=== PATIENT | female | born 1940 | race Caucasian/White ===

== ENCOUNTER 2017-12-11 09:03 | Emergency (ER) | payer MEDICARE, OTHER ==
[~2017-12-11] VITALS: Ht 154.9 cm; Wt 99.8 kg
[~2017-12-11 09:03] MED LIST: CEPH500 PO; CYCL10 PO; DIPH50 PO; ESCI10 PO; FAMO20 PO; FAMO40; HYDCOR2.5B TOP; METF500 PO; MORP30ER PO; NADO80; OXYC5 PO; [UNRECOGNIZED DRUG - REMARK]
[2017-12-11] MEDS ORDERED: GLIM4 PO (09:39)
[2017-12-11] MEDS ORDERED: DILT120 PO (09:39)
[2017-12-11] MEDS ORDERED: METF500 PO (09:39)
[2017-12-11] MEDS ORDERED: Pravastatin Sod40 MG PO (09:40)
[2017-12-11] MEDS ORDERED: LOSARTAN POTAS100 MG PO (09:40)
[2017-12-11] MEDS ORDERED: MORP15ER PO (09:40)
[2017-12-11] MEDS ORDERED: GABA100 PO (09:40)
[2017-12-11 09:43] LABS: BASOPHILS ABSOLUTE AUTO 0.08 K/mm3 (0.00-0.23); BASOPHILS PERCENT AUTO 1 % (0-2); EOSINOPHILS ABSOLUTE AUTO 0.15 K/mm3 (0.00-0.68); EOSINOPHILS PERCENT AUTO 1 % (0-6); Hematocrit 38.6 % (33.0-51.0); Hemoglobin 11.8 g/dL (11.5-16.0); IMMATURE GRAN PERCENT AUTO 1 % (0-1); LYMPHOCYTES ABSOLUTE AUTO 1.33 K/mm3 (0.84-5.20); LYMPHOCYTES PERCENT AUTO 8 % (21-46); MONOCYTES ABSOLUTE AUTO 0.95 K/mm3 (0.16-1.47); MONOCYTES PERCENT AUTO 6 % (4-13); Mean Corpuscular HGB 26.7 pg (26.0-34.0); Mean Corpuscular HGB Conc 30.6 g/dL (31.5-36.5); Mean Corpuscular Volume 87 fL (80-100); Mean Platelet Volume 9.2 fL (9.1-12.4); NEUTROPHILS ABSOLUTE AUTO 14.16 K/mm3 (1.96-9.15); NEUTROPHILS PERCENT AUTO 84 % (41-73); Platelet Count 254 K/mm3 (150-400); RDW Coefficient Variation 14.4 % (11.7-14.2); RDW Standard Deviation 45.8 fL (35.1-46.3); Red Blood Cell Count 4.42 M/mm3 (3.80-5.20); White Blood Cell Count 16.77 K/mm3 (4.00-11.30)
[2017-12-11 10:03] LABS: Alanine Aminotransfer (ALT/SGP 30 U/L (12-78); Albumin, Blood 3.2 g/dL (3.4-5.0); Albumin/Globulin Ratio 0.8 (0.8-1.8); Alk Phos 99 U/L (50-136); Anion Gap 9 mmol/L (6-16); Aspartate Aminotrans (AST/SGOT 23 U/L (12-37); Bilirubin, Total 0.3 mg/dL (0.1-1.0); Blood Urea Nitrogen 18 mg/dL (8-24); Bun/Creatinine Ratio 28.7 (12.0-20.0); CO2, Blood 27 mmol/L (21-32); CPK Creatine Kinase 128 U/L (26-193); Calcium, Blood 9.1 mg/dL (8.5-10.1); Chloride, Blood 104 mmol/L (98-108); Creatine Kinase MB 1.8 ng/mL (0.0-3.6); Creatine Kinase MB Index 1.4 (0.0-4.0); Creatinine, Blood 0.63 mg/dL (0.40-1.00); Glomerular Filtration Rate >60 (60-); Glucose, Blood 151 mg/dL (70-99); Potassium, Blood 4.2 mmol/L (3.5-5.5); Sodium, Blood 140 mmol/L (136-145); Total Protein, Blood 7.2 g/dL (6.4-8.2)
== END 2017-12-11 11:38 | disposition home or self-care (01) ==
LOC: ER 09:03
PROVIDERS: Emergency Medicine
DX: M17.11 Unilateral primary osteoarthritis, right knee (principal); M25.551 Pain in right hip; E11.9 Type 2 diabetes mellitus without complications; I10 Essential (primary) hypertension; E66.01 Morbid (severe) obesity due to excess calories; Z68.41 Body mass index [BMI] 40.0-44.9, adult; Z88.6 Allergy status to analgesic agent; Z79.899 Other long term (current) drug therapy; W17.89XA Other fall from one level to another, initial encounter
CPT/HCPCS: 72170; 73562-RT; 80053; 82550; 82553; 85025; 96361; 96374; 96375; 96376; 99284; J1170; J2405; J7030

== ENCOUNTER → 2018-03-01 | Outpatient (CLI) | payer MEDICARE ==
[~2018-03-01] MED LIST changes: +DILT120 PO; +GABA100 PO; +GLIM4 PO; +LOSARTAN POTAS100 MG PO; +MORP15ER PO; +Pravastatin Sod40 MG PO
[2018-03-01 15:52] LABS: Source, Urine Clean Catch
[2018-03-01 17:46] LABS: Bilirubin, Urine Neg (Neg); Blood, Urine Neg (Neg); Glucose Qualitative, Urine Neg (Neg); Ketones, Urine Neg (Neg); Leukocyte Esterase, Urine 2+ (Neg); Nitrite, Urine Neg (Neg); Protein, Urine Neg (Neg); Specific Gravity, Urine 1.015 (1.003-1.022); Urobilinogen, Urine NORM (Normal)
[2018-03-01 17:53] LABS: Appearance, Urine Hazy (Clear); Bacteria Mod /hpf; Color, Urine No Color (P-Yellow); Red Blood Cells, Urine Not Seen /hpf (0-2); Squamous Epithelial Cells Mod /hpf (Few); White Blood Cells, Urine 0-2 /hpf (0-5)
== END ==
LOC: LAB SHORT 15:50 → LAB 15:50
PROVIDERS: Internal Medicine
DX: R82.90 Unspecified abnormal findings in urine (principal)
CPT/HCPCS: 81001; 87086

== ENCOUNTER → 2019-10-30 | Outpatient (CLI) | payer OTHER | END | disposition home or self-care (01) | LOC: LAB SHORT 16:07 → LAB EV 16:07 | DX: K13.0 Diseases of lips (principal) | CPT/HCPCS: 87070; 87075; 87077; 87147; 87186; 87205 ==

== ENCOUNTER 2021-07-30 18:57 | Emergency (ER) | payer OTHER ==
[~2021-07-30] VITALS: Ht 172.7 cm; Wt 90.7 kg
[2021-07-30 19:50] LABS: Calcium, Ionized (POC) 1.26 mmol/L (1.10-1.46); Chloride (POC) 97 mmol/L (98-108); Creatinine (POC) 0.4 mg/dL (0.6-1.0); Glucose (ISTAT POC) 392 mg/dL (70-99); Hemoglobin (POC) 12.9 g/dL (12.0-16.0); Potassium (POC) 3.9 mmol/L (3.5-5.5); Sodium (POC) 134 mmol/L (135-148); Total CO2 (POC) 23 mmol/L (21-32)
[2021-07-30] MEDS ORDERED: METF500 PO (21:39)
== END 2021-07-30 22:12 | disposition home or self-care (01) ==
LOC: ER 18:57
PROVIDERS: Emergency Medicine
DX: E11.65 Type 2 diabetes mellitus with hyperglycemia (principal); I10 Essential (primary) hypertension; Z79.84 Long term (current) use of oral hypoglycemic drugs; Z79.899 Other long term (current) drug therapy; Z88.6 Allergy status to analgesic agent
CPT/HCPCS: 70450; 71045; 80047; 82947; 85014; 93005; 93010; 99285-25; A9270

== ENCOUNTER → 2021-08-30 | Outpatient (CLI) | payer OTHER ==
[2021-08-30 15:19] LABS: Appearance, Urine Clear (Clear); Bilirubin, Urine Neg (Neg); Blood, Urine Neg (Neg); Color, Urine Yellow (P-Yellow); Glucose Qualitative, Urine 2+ (Neg); Ketones, Urine 2+ (Neg); Leukocyte Esterase, Urine 2+ (Neg); Nitrite, Urine Neg (Neg); Protein, Urine 1+ (Neg); Specific Gravity, Urine 1.015 (1.003-1.022); Urobilinogen, Urine NORM (Normal)
[2021-08-30 15:37] LABS: Calcium Oxalate Crystals Few /hpf
[2021-08-30 15:38] LABS: Bacteria Few /hpf; Red Blood Cells, Urine 0-2 /hpf (0-2); Squamous Epithelial Cells Few /hpf (Few)
== END | disposition home or self-care (01) ==
LOC: LAB SHORT 13:00 → LAB FUT 08-16 16:35
PROVIDERS: Nurse Practitioner Family
DX: N39.0 Urinary tract infection, site not specified (principal); R30.9 Painful micturition, unspecified
CPT/HCPCS: 81001

== ENCOUNTER 2021-11-01 22:36 | Inpatient (IN) | payer OTHER ==
[~2021-11-01] VITALS: Ht 157.5 cm; Wt 79.2 kg
[2021-11-01 23:54] LABS: BASOPHILS ABSOLUTE AUTO 0.11 K/mm3 (0.00-0.23); BASOPHILS PERCENT AUTO 0 % (0-2); EOSINOPHILS ABSOLUTE AUTO 0.01 K/mm3 (0.00-0.68); EOSINOPHILS PERCENT AUTO 0 % (0-6); Hematocrit 45.4 % (33.0-51.0); IMMATURE GRAN ABSOLUTE AUTO 0.12 K/mm3 (0.00-0.10); IMMATURE GRAN PERCENT AUTO 1 % (0-1); LYMPHOCYTES ABSOLUTE AUTO 1.43 K/mm3 (0.84-5.20); LYMPHOCYTES PERCENT AUTO 6 % (21-46); MONOCYTES ABSOLUTE AUTO 1.25 K/mm3 (0.16-1.47); MONOCYTES PERCENT AUTO 5 % (4-13); Mean Corpuscular HGB 24.9 pg (26.0-34.0); Mean Corpuscular HGB Conc 30.8 g/dL (31.5-36.5); Mean Corpuscular Volume 81 fL (80-100); Mean Platelet Volume 9.5 fL (9.1-12.4); NEUTROPHILS ABSOLUTE AUTO 21.56 K/mm3 (1.96-9.15); NEUTROPHILS PERCENT AUTO 88 % (41-73); Platelet Count 312 K/mm3 (150-400); RDW Coefficient Variation 16.7 % (11.7-14.2); RDW Standard Deviation 47.8 fL (35.1-46.3); Red Blood Cell Count 5.63 M/mm3 (3.80-5.20); White Blood Cell Count 24.48 K/mm3 (4.00-11.30)
[2021-11-02 00:11] LABS: Albumin, Blood 3.6 g/dL (3.4-5.0); Albumin/Globulin Ratio 0.8 (0.8-1.8); Bilirubin, Total 0.7 mg/dL (0.1-1.0); Bun/Creatinine Ratio 21.5 (12.0-20.0); Calcium, Blood 10.1 mg/dL (8.5-10.1); Creatinine, Blood 3.63 mg/dL (0.40-1.00); Globulin, Blood 4.5 g/dL (2.2-4.0); Potassium, Blood 3.7 mmol/L (3.5-5.5); Total Protein, Blood 8.1 g/dL (6.4-8.2)
[2021-11-02 00:18] LABS: Source, Urine Straight Cath
[2021-11-02 00:20] LABS: Bilirubin, Urine Neg (Neg); Blood, Urine 5+ (Neg); Glucose Qualitative, Urine 2+ (Neg); Ketones, Urine Neg (Neg); Leukocyte Esterase, Urine 2+ (Neg); Nitrite, Urine Neg (Neg); Protein, Urine 3+ (Neg); Specific Gravity, Urine 1.015 (1.003-1.022); Urobilinogen, Urine NORM (Normal)
[2021-11-02 00:28] LABS: Appearance, Urine Hazy (Clear); Color, Urine Yellow (P-Yellow)
[2021-11-02 00:30] LABS: Amorphous Light (0-Heavy); Bacteria Mod /hpf; Squamous Epithelial Cells Mod /hpf (Few)
[2021-11-02 03:59] LABS: Influenza A, PCR NEGATIVE (NEGATIVE); Influenza B, PCR NEGATIVE (NEGATIVE); Resp Syncytial Virus, PCR NEGATIVE (NEGATIVE); SARS-Cov-2 (COVID-19) PCR, MMC NEGATIVE (NEGATIVE)
[2021-11-02 05:34] LABS: BASOPHILS ABSOLUTE AUTO 0.09 K/mm3 (0.00-0.23); BASOPHILS PERCENT AUTO 0 % (0-2); EOSINOPHILS PERCENT AUTO 0 % (0-6); Hematocrit 44.5 % (33.0-51.0); Hemoglobin 13.2 g/dL (11.5-16.0); IMMATURE GRAN ABSOLUTE AUTO 0.18 K/mm3 (0.00-0.10); IMMATURE GRAN PERCENT AUTO 1 % (0-1); LYMPHOCYTES ABSOLUTE AUTO 1.89 K/mm3 (0.84-5.20); LYMPHOCYTES PERCENT AUTO 7 % (21-46); MONOCYTES ABSOLUTE AUTO 1.67 K/mm3 (0.16-1.47); MONOCYTES PERCENT AUTO 6 % (4-13); Mean Corpuscular HGB 25.5 pg (26.0-34.0); Mean Corpuscular HGB Conc 29.7 g/dL (31.5-36.5); Mean Platelet Volume 10.3 fL (9.1-12.4); NEUTROPHILS ABSOLUTE AUTO 24.41 K/mm3 (1.96-9.15); NEUTROPHILS PERCENT AUTO 87 % (41-73); Platelet Count 282 K/mm3 (150-400); RDW Coefficient Variation 16.7 % (11.7-14.2); RDW Standard Deviation 51.6 fL (35.1-46.3); Red Blood Cell Count 5.18 M/mm3 (3.80-5.20); White Blood Cell Count 28.24 K/mm3 (4.00-11.30)
[2021-11-02 06:01] LABS: Mean Corpuscular Volume 86 fL (80-100)
[2021-11-02 06:14] LABS: Bun/Creatinine Ratio 21.4 (12.0-20.0); Calcium, Blood 8.9 mg/dL (8.5-10.1); Creatinine, Blood 3.46 mg/dL (0.40-1.00); Potassium, Blood 4.7 mmol/L (3.5-5.5)
[2021-11-02 10:32] LABS: Adenovirus F 40/41 Not Detected (NOT DETECT); Astrovirus Not Detected (NOT DETECT); Campylobacter Sp Not Detected (NOT DETECT); Cryptosporidium Not Detected (NOT DETECT); Cyclospora Cayetanensis Not Detected (NOT DETECT); E. Coli O157 Not Detected (NOT DETECT); Entamoeba Histolytica Not Detected (NOT DETECT); Enteroaggregative E. coli-EAEC Not Detected (NOT DETECT); Enteropathogenic E. coli-EPEC Not Detected (NOT DETECT); Enterotoxigenic E. coli-ETEC Not Detected (NOT DETECT); Giardia Lamblia Not Detected (NOT DETECT); Norovirus GI/GII Not Detected (NOT DETECT); Plesiomonas Shigelloides Not Detected (NOT DETECT); Rotavirus A Not Detected (NOT DETECT); Salmonella Sp Not Detected (NOT DETECT); Sapovirus Not Detected (NOT DETECT); Shiga Toxin-prod E. coli-STEC Not Detected (NOT DETECT); Shigella/Enteroin E. coli-EIEC Not Detected (NOT DETECT); Vibrio Cholerae Not Detected (NOT DETECT); Vibrio Sp Not Detected (NOT DETECT); Yersinia Enterocolitica Not Detected (NOT DETECT)
[2021-11-02] MEDS ORDERED: PRAVASTATIN SOD40 MG PO (14:08)
[2021-11-02] MEDS ORDERED: CHLO25B PO (14:09)
[2021-11-02] MEDS ORDERED: GABA300 PO (14:09)
[2021-11-02] MEDS ORDERED: ESCI10 PO (14:10)
[2021-11-02] MEDS ORDERED: Acetaminophen325 M1 PO (14:14)
[2021-11-02] MEDS ORDERED: TRAM50 PO (14:14)
--- NOTE | 2021-11-02 17:05 | NUR ---
PT ARRIVED IN THE ROOM FROM ER APPROX 1345 AND IS HERE FOR ARF/SEPSIS/UTI. PT IS ALERT TO SELF AND PLACE ONLY, UNABLE TO STATE DATE AND TIME, POOR HISTORIAN. VITALS HRR SR 80'S, BP WERE SOFT 90-110 SYSTOLIC, SATS ABOVE 90% ON RA DESATS TO 88% WHEN SLEEPING APPLIE 1L OF O2 VIA NASAL CANNULA. AFEBRILE. PT WAS C/O ABD/BACK PAIN THAT WAS MEDICATED WITH IV DILAUDID IN THE ER AND REPORTED SOFT BP'S, EVER SINCE TRANSFER PT HAS BEEN RESTING ONLY C/O PAIN WHEN MOVED OR REPOSITIONED. NAHCO3 RUNNING AT 150MLS/HR, HORN DRAINING PATENT VIA GRAVITY, PT HAD SIPS OF WATER WITH NO ISSUES. ORIENTED TO ROOM AND UNIT AND USE OF CALL LIGHTS. PT HAS REDNESS ON COCCYX AND BUTTOCKS DUE TO EPISODES OF DIARRHEA PER REPORT, GI PANEL NEGATIVE. SPOKE WITH THE DAUGHTER ON THE PHONE GAVE AN UPDATE ALSO VERIFIED PT'S CODE STATUS PT IS NOT ABLE TO MAKE DECISION AT THIS TIME, DAUGHTER VERIFIED THAT PT WOULD LIKE TO BE DNR ON HER CODE STATUS PROVIDER CALLED AND MADE AWARE CODE STATUS CHANGED TO DNR PALLIATIVE CARE CONSULT ORDERED FOR AD/POLST INFO. PT NOW IN BED RESTING WITH CALL LIGHTS IN REACH. NO OTHER ISSUES REPORTED AT THIS TIME, WILL MONITOR
--- NOTE | 2021-11-03 05:31 | NUR ---
SHFIT SUMMARY PT RESTED WELL THROUGH THE NIGHT. ALERT AND ORIENTED X2, ABLE TO MAKE NEEDS KNOWN. COOPERATIVE WITH PLAN OF CARE. SATS >95% ON 1LNC. TELE READS NSR - RATE 80 AT THIS TIME. HORN IN PLACE. INCONTINENT OF BOWEL - ATTENDS IN PLACE, CHANGED 3 TIMES THROUGH SHIFT PATIENT IS HAVING FREQUENT DIARRHEA. NA BICARB C DEXTROSE INFUSING @150/HR. BLOOD SUGAR WNL. Q2 TURNS. CALL LIGHT WITHIN REACH, BED IN LOWEST POSITION. WILL CONTINUE TO MONITOR.
[2021-11-03 06:16] LABS: BASOPHILS ABSOLUTE AUTO 0.05 K/mm3 (0.00-0.23); BASOPHILS PERCENT AUTO 0 % (0-2); EOSINOPHILS ABSOLUTE AUTO 0.01 K/mm3 (0.00-0.68); EOSINOPHILS PERCENT AUTO 0 % (0-6); Hematocrit 37.4 % (33.0-51.0); Hemoglobin 12.1 g/dL (11.5-16.0); IMMATURE GRAN ABSOLUTE AUTO 0.14 K/mm3 (0.00-0.10); IMMATURE GRAN PERCENT AUTO 1 % (0-1); LYMPHOCYTES ABSOLUTE AUTO 1.31 K/mm3 (0.84-5.20); LYMPHOCYTES PERCENT AUTO 6 % (21-46); MONOCYTES ABSOLUTE AUTO 1.42 K/mm3 (0.16-1.47); MONOCYTES PERCENT AUTO 6 % (4-13); Mean Corpuscular HGB 25.7 pg (26.0-34.0); Mean Corpuscular HGB Conc 32.4 g/dL (31.5-36.5); Mean Platelet Volume 9.9 fL (9.1-12.4); NEUTROPHILS PERCENT AUTO 88 % (41-73); Platelet Count 269 K/mm3 (150-400); RDW Coefficient Variation 17.2 % (11.7-14.2); RDW Standard Deviation 48.7 fL (35.1-46.3); Red Blood Cell Count 4.71 M/mm3 (3.80-5.20); White Blood Cell Count 23.23 K/mm3 (4.00-11.30)
[2021-11-03 06:20] LABS: Mean Corpuscular Volume 79 fL (80-100)
[2021-11-03 06:55] LABS: Albumin, Blood 2.7 g/dL (3.4-5.0); Bilirubin, Total 0.4 mg/dL (0.1-1.0); Bun/Creatinine Ratio 20.2 (12.0-20.0); Calcium, Blood 8.3 mg/dL (8.5-10.1); Creatinine, Blood 3.96 mg/dL (0.40-1.00); Magnesium, Blood 1.7 mg/dL (1.6-2.4); Phosphorus, Blood 6.2 mg/dL (2.5-4.9)
[2021-11-03 07:22] LABS: Albumin/Globulin Ratio 0.9 (0.8-1.8)
[2021-11-03 09:05] LABS: Total Protein, Blood 5.7 g/dL (6.4-8.2)
--- NOTE | 2021-11-03 11:11 | NUR ---
PATIENT ALERT TO SELF AND ABLE TO TELL ME BIRTHDAY. THINKS SHE IS AT HOME. VERY SLOW TO RESPOND AND SOFT SPOKEN. ABLE TO MOVE ALL EXTREMITIES. VERY WEAK OVERALL. COMPLAINS OF LEFT HIP PAIN. Q2 TURNING IN PLACE. HOLDING RIGHT EAR AT TIMES. STATES SHE FELT A POP, AND HAS SMALL AMOUNTS OF PAIN. DR. JARRELL AWARE OF EAR PAIN. ON ROOM AIR THIS AM SATING HIGH 90'S. DENIES SOB. TELE SHOWING SINUS RHYTHM WITH HR 80-90'S. ATTENDS IN PLACE. JOSE AREA AND COCCYX RED, CREAM APPLIED AND Q2 TURNING. HORN CATH IN PLACE DRAINING TO GRAVITY. LR BOLUS INFUSING AND WILL CONTINUE AT 100ML/HR AFTER. ACHS BLOOD SUGARS. WILL CONTINUE TO MONITOR.
--- NOTE | 2021-11-03 11:55 | NUR ---
UPDATE: PATIENT HOLDING RIGHT SIDE OF FACE, END OF JAW AND DIRECTLY BELOW EAR LOBE IS SWOLLEN AND TENDER. DR. JARRELL CALLED AND AWARE. MEDICATED PER EMAR FOR PAIN. WAR COMPRESS APPLIED. WILL CONTINUE TO MONITOR.
--- NOTE | 2021-11-03 12:35 | NUR ---
UPDATE: SPOKE WITH DR. JARRELL REGARDING SWOLLEN/FIRM/TENDER RIGHT LOWER CHEEK. PAIN MEDS GIVEN PER EMAR AND WARM COMPRESS APPLIED. SPOKE WITH DAUGHTER CHAMP ON PHONE. SHE STATES SINCE PATIENT HAD UTI AND KIDNEY INFECTION IN JULY, HER MEMORY HAS RAPIDLY DECREASED. PATIENT WAS LIVING WITH DAUGHTER AND RECENTLY MOVED TO [facility] LAST THURSDAY. DAUGHTER STATES PATIENT DID NOT RECOGNIZE FAMILY AND THOUGHT THEY WERE WORKERS. DAUGHTER ALSO STATES PATIENT HAS A VERY POOR APPEATITE AND AT TIMES IT OWULD BE HARD TO GET PATIENT TO DRINK 20 OZ OF WATER AT HOME. UPDATE PROVIDED TO DAUGHTER. PATIENT RESTING AT THIS TIME. DRANK ENSURE AND SOME WATER FOR LUNCH. NOT INTERESTED IN FOOD. 24 HOUR URINE STARTED ON 11/03 AT 1145 AM.
[2021-11-03 14:44] LABS: Bun/Creatinine Ratio 19.2 (12.0-20.0); Calcium, Blood 7.8 mg/dL (8.5-10.1); Creatinine, Blood 4.06 mg/dL (0.40-1.00); Potassium, Blood 3.2 mmol/L (3.5-5.5)
--- NOTE | 2021-11-03 18:06 | NUR ---
SHIFT SUMMARY: NO ACUTE CHANGES. SEE PREVIOUS NOTES. REMAINS ALERT AND ORIENTED X1-2. ON ROOM AIR - 1L NASAL CANNULA SATING HIGH 90'S. NO CHANGES IN TELE. DR. JARRELL IN TO ASSESS RIGHT PAROTID GLAND. ULTRASOUND ORDERED. SECURITIES BROKER IN ROOM AT THIS TIME. PATIENT SLEEPING ON AND OFF. POTASSIUM INFUSED. LR INFUSING AT 100 ML/HR. Q2 TURNS. ACHS BLOOD SUGARS. POOR APPEATITE. MORE INTERESTED IN DRINKING THAN EATING. SPEECH THERAPY ORDERED. NOT USING CALL LIGHT. WILL CONTINUE TO MONTIOR AND REPORT OFF.
[2021-11-04 04:53] LABS: Hematocrit 32.4 % (33.0-51.0); Hemoglobin 10.6 g/dL (11.5-16.0); Mean Corpuscular HGB 25.5 pg (26.0-34.0); Mean Corpuscular HGB Conc 32.7 g/dL (31.5-36.5); Mean Corpuscular Volume 78 fL (80-100); Mean Platelet Volume 9.7 fL (9.1-12.4); Platelet Count 207 K/mm3 (150-400); RDW Coefficient Variation 17.4 % (11.7-14.2); RDW Standard Deviation 48.6 fL (35.1-46.3); Red Blood Cell Count 4.16 M/mm3 (3.80-5.20); White Blood Cell Count 15.31 K/mm3 (4.00-11.30)
[2021-11-04 05:12] LABS: Albumin, Blood 2.4 g/dL (3.4-5.0); Anion Gap 13 mmol/L (6-16); Blood Urea Nitrogen 78 mg/dL (8-24); Bun/Creatinine Ratio 19.6 (12.0-20.0); CO2, Blood 36 mmol/L (21-32); CPK Creatine Kinase 80 U/L (26-193); Calcium, Blood 7.9 mg/dL (8.5-10.1); Chloride, Blood 86 mmol/L (98-108); Creatinine, Blood 3.97 mg/dL (0.40-1.00); Glomerular Filtration Rate 11 (60-); Glucose, Blood 168 mg/dL (70-99); Magnesium, Blood 1.6 mg/dL (1.6-2.4); Phosphorus, Blood 4.4 mg/dL (2.5-4.9); Potassium, Blood 3.1 mmol/L (3.5-5.5); Sodium, Blood 135 mmol/L (136-145); Uric Acid, Blood 8.4 mg/dL (2.6-6.0)
--- NOTE | 2021-11-04 06:02 | NUR ---
SHIFT SUMMARY PT ALERT TO SELF. PT SLEEPING THROUGH MOST OF SHIFT. PT CRYING IN PAIN, MEDICATED PER EMAR. PT RESTING AFTER MEDICATION. HR STABLE. BP STABLE. UNABLE TO ASSESS FOR CP D/T CONFUSION. BED ALARM IN PLACE. 24 HR URINE IN PROGRESS, HORN BAG IN ICE. HORN PATENT AND DRAINING TO GRAVITY. PT TURNED Q 2 HRS AND NEEDED FOR COMFORT. BARRIER CREAM APPLIED TO COCCYX. WILL CONT TO MONITOR UNTIL REPORT GIVEN TO DAYSHIVINNY RN.
--- NOTE | 2021-11-04 09:00 | NUR ---
PT WAS VERY LETHARGIC WEAK AND DROWSY BARELY EVEN RESPOND OR FOLLOW COMMANDS, VITALS HRR SR 80-90'S, BP SYSTOLIC 110-130, SATS ABOVE 95% ON 2L OF O2, AFEBRILE. DR JARRELL SAW PT TODAY ORDERED ONE TIME DOSE OF NARCAN 0.4MG, AFTER 15 MINS PT CAME ALERT COULDNT GET COMFORTABLE IN BED C/O BACK PAIN, ABLE TO STATE NAME SPEECH IS GARBLED, TAKES MULTIPLE REDIRECTION TO FOLLOW COMMANDS, PT WAS REPOSITIONED IN BED, IV NARCOTICS DC'D AT THIS TIME TO GIVE TYLENOL FOR NOW FOR PAIN. SPEECH THERAPIST WORK WITH THE PT ORDER TO KEEP PT NPO FOR SAFETY. NO PO MEDS. PT STARTED ON LIDOCAINE PATCH TYELONOL SWITCH TO SUPPOSITORY, HEAT PACK APPLIED ON BACK WELL. PT HAD A LOOSE BM THIS MORNING BED BATH PROVIDED PT ABLE TO TOLERATE. 24 HRS URINE COMPLETED. BOLUS OF [address] JARRELL. PT NOW RESTING COMFORTABLY IN BED, CALL LIGHTS IN REACH WILL MONITOR PT
[2021-11-04 14:03] LABS: Protein, Urine Quantitative 85.9 mg/dL (0.0-11.9)
--- NOTE | 2021-11-04 18:10 | NUR ---
PT SUMMARY: SEE PREVIOUS NOTES. PT MORE ALERT AND TALKING FOR THE REST OF THE SHIFT STILL CONFUSED PULLING ON LINES AND TUBINGS, OFTEN PULLS ON O2 CANNULA THEN DESATS TO 80'S, RECOVERS QUICK. VITALS REMAINED STABLE, AFEBRILE. HORN DRAINING PATENT VIA GRAVITY. PT CONTINUES TO MOAN AND GROAN MEDICATED WITH TYLENOL SUPPOSITORY, HEAT PACK AND LIDOCAINE PATCH THAT SEEMED TO WORK. ORAL CARE PROVIDED AND LEMON SWABS FOR PAROTIDITIS. REPOSITIONED OFTEN FOR COMFORT. PT REMAINS NPO TO RE-EVAL BY SPEECH THERAPIST IN AM. LR RUNNING AT 100MLS/HR. PT RESTING IN BED CALL LIGHTS IN REACH WILL REPORT TO ONCOMING SHIFT
[2021-11-05 05:15] LABS: Hematocrit 31.4 % (33.0-51.0); Hemoglobin 10.1 g/dL (11.5-16.0); Mean Corpuscular HGB 25.3 pg (26.0-34.0); Mean Corpuscular HGB Conc 32.2 g/dL (31.5-36.5); Mean Corpuscular Volume 79 fL (80-100); Mean Platelet Volume 9.9 fL (9.1-12.4); Platelet Count 196 K/mm3 (150-400); RDW Coefficient Variation 17.2 % (11.7-14.2); RDW Standard Deviation 48.9 fL (35.1-46.3); White Blood Cell Count 10.95 K/mm3 (4.00-11.30)
[2021-11-05 05:51] LABS: Albumin, Blood 2.2 g/dL (3.4-5.0); Anion Gap 9 mmol/L (6-16); Blood Urea Nitrogen 77 mg/dL (8-24); Bun/Creatinine Ratio 20.1 (12.0-20.0); CO2, Blood 37 mmol/L (21-32); Calcium, Blood 7.8 mg/dL (8.5-10.1); Chloride, Blood 90 mmol/L (98-108); Creatinine, Blood 3.84 mg/dL (0.40-1.00); Glomerular Filtration Rate 11 (60-); Glucose, Blood 121 mg/dL (70-99); Magnesium, Blood 1.5 mg/dL (1.6-2.4); Phosphorus, Blood 3.4 mg/dL (2.5-4.9); Potassium, Blood 2.7 mmol/L (3.5-5.5); Sodium, Blood 136 mmol/L (136-145)
--- NOTE | 2021-11-05 06:37 | NUR ---
SHIFT SUMMARY PT LETHARGIC DURING SHIFT. REPONDS TO VERBAL STIMULI. PT ALERT TO SELF. HORN DRAINING TO GRAVITY. HR STABLE. BP STABLE. OXYGEN SATURATION MAINTAINED ABOVE 92% ON 2 L OF OXYGEN VIA NC. PT TURNED Q [address] PHYSICIAN NOTIFIED OF AM LABS. PHYSICIAN PUT IN ORDERS FOR ELECTROLYTE REPLACEMENT, SEE EMAR. WILL CONT TO MONITOR UNTIL REPORT GIVEN TO MARION SOTO.
--- NOTE | 2021-11-05 06:50 | NUR ---
UPDATE SPOKE WITH PHYSICIAN REGARDING ORDERS FOR LR. PHYSICIAN DOES NOT WANT BOLUS OR LR TO RUN AT 200 ML/HR. LR TO RUN AT 75 ML/HR. PHARMACY NOTIFIED.
--- NOTE | 2021-11-05 16:53 | NUR ---
SHIFT SUMMARY PT ALERT, ORIENTED TO PERSON/SELF, SURROUNDING AND FOLLOWING DIRECTIONS. APPEARS TO BE SLEEPING FOR MAJORTY OF SHIFT, WAKES EASILY TO VERBAL STIMULI. PT APPEARS PAINFUL, MEDICATED PER EMAR. NO OTHER S/Sx OF DISTRESS NOTED. REPOSITIONED FOR COMFORT AND PRESSURE ULCER PREVENTION. PT STARTING BACK ON IV ANTIBIOTICS, UNABLE TO SWALLOW PILLS AT THIS TIME; DR JARRELL NOTIFIED. VSS. NO OTHER ACUTE CHANGES NOTED. WILL CONTINUE TO MONITOR UNTIL REPORT GIVEN TO ONCOMING RN.
[2021-11-06 05:57] LABS: Hematocrit 31.9 % (33.0-51.0); Hemoglobin 10.2 g/dL (11.5-16.0)
--- NOTE | 2021-11-06 06:06 | NUR ---
SHIFT SUMMARY PT ALERT TO SELF. DIRECTABLE. PT CRYING DURING SHIFT AT TIMES. AT TIMES PT STATES SHE "DOESNT KNOW WHY SHE IS CRYING." PT PROVIDED WITH COMFORT. PT CALMS DOWN WHEN HAVING NURSE AT BEDSIDE. PT REPORTED TO HAVE PAIN BEFORE NEXT SCHEDULED DOSE OF TYLENOL IS ABLE TO BE GIVEN. HEATING PACK APPLIED AND PT REPOSITIONED. PT RESTING AFTER THESE MEASURES. PT ALSO MEDICATED WITH TYLENOL TX FOR PAIN RELIEF. SEE EMAR. PT REPOSITIONED Q 2 HRS. BARRIER CREAM APPLIED TO COCCYX. PT FREQUENTLY PULLING AT OXYGEN TUBING. HARSHAENLTY ON CAMERA. HORN PATENT AND DRAINING. HR STABLE. BP STABLE. NO CP OR PRESSURE REPORTED. OXYGEN SATURATION MAINTAINED ABOVE 92% ON 2 L OF OXYGEN VIA NC.DR. ORELLANA NOTIFIED THAT PT DOES NOT HAVE AM LABS. LABS ORDERED PER PHYSICIAN STAT AND WILL INFORM PHYSICIAN AFTER LABS HAVE RESULTED. WILL CONT TO MONITOR UNTIL REPORT GIVEN TO MELLO SOTO.
[2021-11-06 06:19] LABS: Albumin, Blood 2.1 g/dL (3.4-5.0); Anion Gap 7 mmol/L (6-16); Blood Urea Nitrogen 67 mg/dL (8-24); Bun/Creatinine Ratio 19.9 (12.0-20.0); CO2, Blood 38 mmol/L (21-32); Chloride, Blood 93 mmol/L (98-108); Creatinine, Blood 3.37 mg/dL (0.40-1.00); Glomerular Filtration Rate 13 (60-); Glucose, Blood 123 mg/dL (70-99); Magnesium, Blood 1.8 mg/dL (1.6-2.4); Phosphorus, Blood 2.8 mg/dL (2.5-4.9); Sodium, Blood 138 mmol/L (136-145)
--- NOTE | 2021-11-06 06:41 | NUR ---
UPDATE UPDATED ANGELA PT'S AM LABS. ORDERS FOR 40 MEQ OF K+ AND DECREASING RATE OF LR TO 50 ML/HR.
--- NOTE | 2021-11-06 17:55 | NUR ---
SHIFT SUMMARY PT A&O TO SELF AND IS FOLLOWING DIRECTSION, MORE ALERT THAN YESTERDAY ABLE TO ANSWER QUESTIONS. PT PULLING AT LINE AND CLOTHING T/O SHIFT, PULLED POWERGLIDE OUT THIS AFTERNOON. PT REPORTS PAIN, MEDICATED PER EMAR. PT DENIES SOB, SPO2 >90% ON RA T/O SHIFT. PT DENIES CHEST PAIN, NAUSEA AND DIZZINESS T/O SHIFT. PT REPOSITIONED Q2. PT RECEIVED POTASSIUM SUPPLEMENTS AND IV ANTIBIOTICS. VSS. NO OTHER ACUTE CHANGES NOTED. WILL CONTINUE TO MONITOR UNTIL REPORT GIVEN TO ONCOMING RN.
[2021-11-07 04:22] LABS: Hematocrit 35.4 % (33.0-51.0); Hemoglobin 11.5 g/dL (11.5-16.0)
[2021-11-07 04:47] LABS: Albumin, Blood 2.2 g/dL (3.4-5.0); Anion Gap 8 mmol/L (6-16); Blood Urea Nitrogen 54 mg/dL (8-24); Bun/Creatinine Ratio 21.2 (12.0-20.0); CO2, Blood 35 mmol/L (21-32); Chloride, Blood 97 mmol/L (98-108); Creatinine, Blood 2.55 mg/dL (0.40-1.00); Glomerular Filtration Rate 18 (60-); Glucose, Blood 157 mg/dL (70-99); Magnesium, Blood 1.5 mg/dL (1.6-2.4); Phosphorus, Blood 2.1 mg/dL (2.5-4.9); Potassium, Blood 2.7 mmol/L (3.5-5.5); Sodium, Blood 140 mmol/L (136-145)
--- NOTE | 2021-11-07 05:57 | NUR ---
BILINGUAL MANAGER SUMMARY PT STILL ALERT TO SELF. PT PULLING AT LINES DESPITE REDIRECTING SO ORDER FOR MITTEN RESTRAINTS OBTAINED. PT SLEPT COMFORTABLY FOR MOST OF THE SHIFT. VITAL SIGNS STABLE AND PT AFEBRILE. ONE EPISODE OF LOOSE STOOL THIS SHIFT. WILL REPORT TO ONCOMING RN.
[2021-11-07 15:11] LABS: A/G RATIO 1.1 (0.7-1.7); ALBUMIN 2.5 g/dL (2.9-4.4); ALPHA-1-GLOBULIN 0.3 g/dL (0.0-0.4); ALPHA-2-GLOBULIN 0.8 g/dL (0.4-1.0); BETA GLOBULIN 0.6 g/dL (0.7-1.3); GAMMA GLOBULIN 0.8 g/dL (0.4-1.8); GLOBULIN, TOTAL 2.5 g/dL (2.2-3.9); IMMUNOGLOBULIN A, QN, SERUM 205 mg/dL (64-422); IMMUNOGLOBULIN G, QN, SERUM 706 mg/dL (586-1602); IMMUNOGLOBULIN M, QN, SERUM 70 mg/dL (26-217); M-SPIKE Not Observed g/dL (Not Observed)
--- NOTE | 2021-11-07 19:31 | NUR ---
SHIFT SUMMARY PT A/O X2, CONFUSED AT TIMES. PT IN MITTEN RESTRAINTS AT BEGINING OF SHIFT, RESTRAINTS OFF OF PT AROUND NOON AND AT THE BEDSIDE. PT MORE ALERT TOWARDS END OF SHIFT. VSS THROUGHOUT SHIFT WITH 02 SATS >92% ON RA. PT HAD BM TODAY, DARK BROWN AND LOOSE. PT REPORTED GENERALIZED PAIN THROUGHOUT SHIFT, TREATED PER EMAR, REPOSITIONED, AND USED DISTRACTION TO CONSOLE PT. CAMERA ON IN ROOM. HORN IN PLACE AND DRAINING TO GRAVITY, YELLOW URINE.
[2021-11-08 03:24] LABS: Hematocrit 34.6 % (33.0-51.0)
[2021-11-08 03:39] LABS: Albumin, Blood 2.2 g/dL (3.4-5.0); Anion Gap 7 mmol/L (6-16); Blood Urea Nitrogen 37 mg/dL (8-24); Bun/Creatinine Ratio 23.1 (12.0-20.0); CO2, Blood 31 mmol/L (21-32); Calcium, Blood 7.6 mg/dL (8.5-10.1); Chloride, Blood 99 mmol/L (98-108); Glomerular Filtration Rate 31 (60-); Glucose, Blood 147 mg/dL (70-99); Magnesium, Blood 1.2 mg/dL (1.6-2.4); Phosphorus, Blood 2.4 mg/dL (2.5-4.9); Potassium, Blood 2.8 mmol/L (3.5-5.5); Sodium, Blood 137 mmol/L (136-145)
--- NOTE | 2021-11-08 05:58 | NUR ---
ARMED GUARD SUMMARY PT IS AXO X3 THIS SHIFT AND IS MUCH IMPROVED COMPARED TO PREVIOS TWO NIGHT SHE WAS NOT PULLING AT HER LINES AND IS COMMUNICATING APPROPRIATLEY. VSS AND TELE SHOWING SR IN THE 60'S THIS SHIFT. PT HAD 2 LOOSE BM'S THIS SHIFT AND THE SKIN ON HER BUTTOCKS IS VERY EXCORIATED BECAUSE OF CONTINUED INCONTINENCE, SKIN CARE AND CREAM APPLIED PRN. PT HAVING BETTER PO FLUID INTAKE THIS SHIFT. PT STILL HAVING DIFFICULT PAIN CONTROL HOWEVER THERE ARE TIMES WHEN SHE IS IN NO DISTRESS BUT WHEN STAFF THEN ENTERS THE BEDSIDE SHE BEGINS TO CRY OUT IN PAIN. WILL REPORT TO ONCOMING RN.
[2021-11-08 08:11] LABS: ANTIGLOMERULAR BM AB 3 units (0-20)
[2021-11-08 12:11] LABS: M-SPIKE, % Not Observed % (Not Observed); PROTEIN,TOTAL,URINE 42.5 mg/dL (Not Estab.)
[2021-11-08 12:49] LABS: Albumin, Blood 2.2 g/dL (3.4-5.0); Anion Gap 8 mmol/L (6-16); Blood Urea Nitrogen 34 mg/dL (8-24); Bun/Creatinine Ratio 24.6 (12.0-20.0); CO2, Blood 29 mmol/L (21-32); Calcium, Blood 7.7 mg/dL (8.5-10.1); Chloride, Blood 101 mmol/L (98-108); Creatinine, Blood 1.38 mg/dL (0.40-1.00); Glomerular Filtration Rate 37 (60-); Glucose, Blood 229 mg/dL (70-99); Phosphorus, Blood 3.2 mg/dL (2.5-4.9); Potassium, Blood 3.4 mmol/L (3.5-5.5); Sodium, Blood 138 mmol/L (136-145)
--- NOTE | 2021-11-08 18:00 | NUR ---
SHIFT SUMMARY PT A/O X3, CONFUSED. VSS THROUGHOUT SHIFT WITH O2 SATS > 94% ON RA. PT OUT OF MITTEN RESTRAINTS FOR MAJORITY OF SHIFT, MITTENS APPLIED AT [address] PRESSLEY ORDERS DUE TO PT PULLING OUT AN IV AND PULLING OFF TELE LEADS. PT MANAGED TO REMOVE MITTENS MULTIPLE TIMES DURING SHIFT, MONITOR TECHS NOTIFIED STAFF. PT REPORTED GENERALIZED PAIN DURING SHIFT, PT REPOSITIONED AND TREATED PER EMAR. NO REPORT OF CHEST PAIN/PRESSURE THROUGHOUT SHIFT. NO REPORT OF SOB/DYSPNEA THROUGHOUT SHIFT. HORN IN PLACE AND DRAINING TO GRAVITY, YELLOW URINE.
--- NOTE | 2021-11-08 18:08 | NUR ---
UPDATE AT 1450, PATIENT TECH CONTACTED RN DUE TO PT PULLING LEFT FOREARM IV. IV CATHETER WAS INTACT. IV SITE WRAPPED WITH 2X2 AND COBAN. PT REORIENTED AND INFORMED OF THE IMPORTANCE OF THE IV'S. PT EXPRESSED UNDERSTANDING. 1455 WIRE TURNING MACHINE OPERATOR CONTACTED THIS RN ABOUT PT PULLING OFF TELE LEADS. LEADS REPLACED AND DR PRESSLEY NOTIFIED. PRDERS FOR SOFT MITTEN RESTRAINTS ORDERED TO PROTECT LINES AND LEADS.
[2021-11-09 03:25] LABS: Hematocrit 34.9 % (33.0-51.0); Hemoglobin 11.1 g/dL (11.5-16.0)
[2021-11-09 03:43] LABS: Albumin, Blood 2.3 g/dL (3.4-5.0); Anion Gap 8 mmol/L (6-16); Blood Urea Nitrogen 27 mg/dL (8-24); Bun/Creatinine Ratio 25.5 (12.0-20.0); CO2, Blood 27 mmol/L (21-32); Calcium, Blood 7.9 mg/dL (8.5-10.1); Chloride, Blood 102 mmol/L (98-108); Creatinine, Blood 1.06 mg/dL (0.40-1.00); Glomerular Filtration Rate 50 (60-); Glucose, Blood 166 mg/dL (70-99); Magnesium, Blood 1.2 mg/dL (1.6-2.4); Phosphorus, Blood 2.4 mg/dL (2.5-4.9); Potassium, Blood 3.2 mmol/L (3.5-5.5); Sodium, Blood 137 mmol/L (136-145)
--- NOTE | 2021-11-09 05:35 | NUR ---
AUTOMATIC PAINT SPRAYER OPERATOR SUMMARY PT MORE CONFUSED THIS SHIFT COMPARED TO PREVIOUS AUTOMATIC PAINT SPRAYER OPERATOR NEDDING CONSTANT REDIRECTION ABOUT PULLING AT HER LINES, RESTRAINTS DC'D AT START OF THE SHIFT. NO BOWEL MOVEMENTS THIS SHIFT. PT CONTINUES TO HAVE GOOD URINE OUTPUT. ULTRAM GIVEN AND PAIN APPEARS BETTER MANAGED THIS SHIFT. WILL REPORT TO ONCOMING RN.
--- NOTE | 2021-11-09 08:17 | NUR ---
Pt sitting up in bed, c/o pain in her right hip. She is alert, oriented to person, place, and not the date or time. Asked if she missed dinner last night, stating that she can't remember much of yesterday and thinks that she missed a "day and a half". States that at baseline she is wheelchair bound, but cannot explain to me where she lives, but she knows that she lives somewhere where she receives assistance to transfer to and from her wheelchair, but that she mostly manages on her own, even if she does fall from time to time. Assisted to dangle on side of bed and states that her hip feels much better in that position. She is eating breakfast.
--- NOTE | 2021-11-09 11:20 | NUR ---
bladder training started at 1040.
--- NOTE | 2021-11-09 11:43 | NUR ---
Pt sitting up in chair again after working with physical therapist. She appears comfortable, watching TV and having conversations. She had some confusion about where her wheelchair was this morning, and kept asking about it. She kept saying that she wanted to get up and go around. Reassured her that the wheelchair was probably at home, but she kept asking about it.
--- NOTE | 2021-11-09 12:25 | NUR ---
pt stated she felt like her bladder was full. UNclamped rodriguez.
--- NOTE | 2021-11-09 12:45 | NUR ---
Pt was a max assist, 2 persons required to assist her to stand and the chair was swaped out for commode chair behind her. She is sitting on the commode but keeps forgetting that she is sitting on it.
--- NOTE | 2021-11-09 15:22 | NUR ---
The pt has been talkative, alert, but confused today. She perseverates on various topics throughout the day. She has difficulty following directions as she forgets them and is easily distracted. Does not have insight into her limitations, ongoing care, and at times is confused to her location, and also to her home situation. Cannot give consistent information about her living situation, usual activities, and normal limitations. She is pleasant, and cooperative but requires lots of redirection. She has no been lethargic at all today. C/O constipation; however, in report I was told that she had been having loose stools within the past two days. Bladder training is ongoing. Max assist to the bedside commode from the chair.
--- NOTE | 2021-11-09 16:22 | NUR ---
2 PERSON maximum assist from bedside commode to the bed. Positioned on her left side. IV infusing potassium chloride per orders. Potassium phosphate IV finally completed.
--- NOTE | 2021-11-09 16:49 | NUR ---
Spoke with Brandy, the patient's daughter this afternoon. STates that the pt was living with her for 3 months when she rapidly declined after having a kidney infection, developed acute memory loss, and was placed in [facility], but only after 3-4 days she was admitted to the hospital this time. Spoke with Cindy, director of the [facility], phone [phone] and she said that the pt needs to be assessed before she may return. Cindy is out of town until Thursday11/12/21, so that would be the earliest date it could be done. There are various stipulations, but the most significant per Cindy are 1) Pt must be 1 person transfer only and 2) pt cannot be on any insulin.
--- NOTE | 2021-11-09 18:30 | NUR ---
Pt c/o severe pain in her left forearm, waking up to the pain of the potassium chloride infusion. It was stopped, with 10 meq left to infuse due to the pt's intolerance of it. ice pack applied for relief for 30 minutes, pt stated minimal relief. Warm heating pad applied, and pt fell asleep. Infusion of NS then attempted and pt again c/o severe pain at the site, and up her arm. Site verified to still be WNL. 3 attempts to restart IV, but the veins are so delicate that they rupture at the slightest prick. BRITTANY Moser Mc. stated that she had the same problem, also when attempting to start IV access with the [employer] ultrasound. Retried infusion in the left forearm, and this time the pt tolerated it well. She is sleeping at this time. Remote camera monitoring still in progress.
--- NOTE | 2021-11-09 18:35 | NUR ---
Nieto catheter unclamped, drained 200 cc, and reclamped when draining stopped.
[2021-11-10 06:27] LABS: Albumin, Blood 2.3 g/dL (3.4-5.0); Anion Gap 11 mmol/L (6-16); Blood Urea Nitrogen 17 mg/dL (8-24); Bun/Creatinine Ratio 22.3 (12.0-20.0); CO2, Blood 23 mmol/L (21-32); Calcium, Blood 8.4 mg/dL (8.5-10.1); Chloride, Blood 105 mmol/L (98-108); Creatinine, Blood 0.76 mg/dL (0.40-1.00); Glomerular Filtration Rate >60 (60-); Glucose, Blood 173 mg/dL (70-99); Magnesium, Blood 1.8 mg/dL (1.6-2.4); Phosphorus, Blood 3.3 mg/dL (2.5-4.9); Potassium, Blood 3.2 mmol/L (3.5-5.5); Sodium, Blood 139 mmol/L (136-145)
--- NOTE | 2021-11-10 17:55 | NUR ---
SHIFT SUMMARY PT LETHARGIC MOST OF MORNING AND CLOSING HER EYES WHILE TALKING. THIS AFTERNOON SHE IS MORE AWAKE AND ALERT. ORIENTED X3. VS HAVE BEEN STABLE. O2 SATS REMAIN ABOVE 90% ON RA. PT COMPLAINED OF BACK AND HIP PAIN AND MEDICTED PER EMAR. PT HAS BEEN REPOSITIONING HERSELF IN BED FREQUENTLY. PT HAD TWO INCONTINENT BM THIS SHIFT AND ATTENDS IN PLACE. WOUND TO COCCYX CLEANED AND NEW DRESSING PLACED. HORN CATHETER DC'ED TODAY. BED ALARM ON AND REMOTE CAMERA MONITORING FOR SAFETY
[2021-11-11 02:24] LABS: Source, Urine Foley catheter
[2021-11-11 02:26] LABS: Bilirubin, Urine Neg (Neg); Blood, Urine 1+ (Neg); Glucose Qualitative, Urine 3+ (Neg); Ketones, Urine Neg (Neg); Leukocyte Esterase, Urine Neg (Neg); Nitrite, Urine Neg (Neg); Protein, Urine Neg (Neg); Specific Gravity, Urine 1.005 (1.003-1.022); Urobilinogen, Urine NORM (Normal)
[2021-11-11 02:40] LABS: Appearance, Urine Clear (Clear); Color, Urine Yellow (P-Yellow)
[2021-11-11 02:41] LABS: Bacteria Not Seen /hpf; Squamous Epithelial Cells Not Seen /hpf (Few); White Blood Cells, Urine 0-2 /hpf (0-5)
[2021-11-11 03:46] LABS: Hematocrit 37.3 % (33.0-51.0); Hemoglobin 11.8 g/dL (11.5-16.0)
[2021-11-11 04:02] LABS: Albumin, Blood 2.5 g/dL (3.4-5.0); Anion Gap 10 mmol/L (6-16); Blood Urea Nitrogen 14 mg/dL (8-24); Bun/Creatinine Ratio 18.8 (12.0-20.0); CO2, Blood 27 mmol/L (21-32); Calcium, Blood 8.6 mg/dL (8.5-10.1); Chloride, Blood 104 mmol/L (98-108); Creatinine, Blood 0.75 mg/dL (0.40-1.00); Glomerular Filtration Rate >60 (60-); Glucose, Blood 167 mg/dL (70-99); Magnesium, Blood 1.6 mg/dL (1.6-2.4); Phosphorus, Blood 2.8 mg/dL (2.5-4.9); Potassium, Blood 2.8 mmol/L (3.5-5.5); Sodium, Blood 141 mmol/L (136-145)
--- NOTE | 2021-11-11 05:50 | NUR ---
PT IS ALERT TO SELF AND IS NOT REDIRECTABLE. PT HAD HORN CATHETER DC'D LATE ON THE PRIOR DAYSHIFT HOWEVER AFTER MULTIPLE ATTEMPS TO VOID THE PT WAS UNABLE TO PASS URINE DESPITE HAVE MULTIPLE BM'S. BLADDER SCAN SHOWED >600ML SO ORDER FOR STRAIGHT CATH WHICH GOT OUT >500ML OF URINE OUT. SEVERAL HOURS LATER THE PT AGAIN ATTEMPTED MULTIPLE TIMES TO VOID BUT WITH NO SUCCESS. AFTER THE BLADDER SCAN SHOWED >800ML OF URINE AN ORDER TO REPLACE THE HORN CATHETER WAS OBTAINED WHICH QUICKLY RESULTED IN 1300ML OF URINE. ATTEMPTS WERE MADE TO GET PT TO STAND AT THE EDGE OF THE BED HOWEVER DUE TO WEAKNESS THE PT WAS NOT ABLE TO BEAR ANY WEIGHT WITH HER LEGS. PT CONTINUES TO HAVE INCONTINENT LOOSE STOOLS SO ORDER FOR IMMODIUM X4 WAS OBTAINED DUE TO VERY EXCORIATED SKIN ON BUTTOCKS AND JOSE-AREA. PT VERY AGITATED AND RESTLESS THIS SHIFT AND DID NOT SLEEP AT ALL TONIGHT. VSS ALTHOUGH BP BECOMING MORE HYPERTENSIVE. O2 SATS >92% ON RM AIR. WILL REPORT TO ONCOMING RN.
[2021-11-11 12:09] LABS: ANA DIRECT Negative (Negative); ANTIMYELOPEROXIDASE (MPO) ABS <9.0 U/mL (0.0-9.0); ANTIPROTEINASE 3 (PR-3) ABS <3.5 U/mL (0.0-3.5); ATYPICAL PANCA <1:20 titer (Neg:<1:20); CYTOPLASMIC (C-ANCA) <1:20 titer (Neg:<1:20); PERINUCLEAR (P-ANCA) <1:20 titer (Neg:<1:20)
--- NOTE | 2021-11-11 18:27 | NUR ---
SHIFT SUMMARY: PT ALERT, ORIENTED TO SELF AND SURROUNDINGS, CONFUSED T/OUT SHIFT. PT MAINTAINING O2 SATS >92% ON RA, DENIES CHEST PAIN/PRESSURE. PT UP TO BEDSIDE CHAIR 2X, REQUIRING 2 PERSON ASSIST, WEAKNESS CONTINUES. PT RE-EVALUATED BY SPEECH THERAPY TODAY, DIET UPGRADED TO MEC SOFT AND PT ABLE TO SWALLOW PILLS WHOLE W/WATER. PT PLACED ON LOW SLIDING SCALE AND HOME DOSE OF METFORMIN HAS BEEN ORDERED, FIRST DOSE WITH DINNER. PT REPOSITIONED OFTEN, ATTENS CHANGED NEEDED. INDWELLING HORN CONTINUES PATENT. AT THIS TIME, PT RESTING QUIETLY IN BEDSIDE CHAIR, WILL CONTINUE TO MONITOR AND TREAT ACCORDINGLY UNTIL CHANGE OF SHIFT.
[2021-11-12 04:11] LABS: BASOPHILS ABSOLUTE AUTO 0.06 K/mm3 (0.00-0.23); BASOPHILS PERCENT AUTO 1 % (0-2); EOSINOPHILS ABSOLUTE AUTO 0.59 K/mm3 (0.00-0.68); EOSINOPHILS PERCENT AUTO 6 % (0-6); Hematocrit 36.9 % (33.0-51.0); Hemoglobin 11.5 g/dL (11.5-16.0); IMMATURE GRAN ABSOLUTE AUTO 0.15 K/mm3 (0.00-0.10); IMMATURE GRAN PERCENT AUTO 2 % (0-1); LYMPHOCYTES ABSOLUTE AUTO 2.04 K/mm3 (0.84-5.20); LYMPHOCYTES PERCENT AUTO 20 % (21-46); MONOCYTES ABSOLUTE AUTO 1.06 K/mm3 (0.16-1.47); MONOCYTES PERCENT AUTO 11 % (4-13); Mean Corpuscular HGB 25.2 pg (26.0-34.0); Mean Corpuscular HGB Conc 31.2 g/dL (31.5-36.5); Mean Corpuscular Volume 81 fL (80-100); NEUTROPHILS ABSOLUTE AUTO 6.14 K/mm3 (1.96-9.15); NEUTROPHILS PERCENT AUTO 61 % (41-73); Platelet Count 272 K/mm3 (150-400); RDW Coefficient Variation 17.9 % (11.7-14.2); RDW Standard Deviation 51.7 fL (35.1-46.3); Red Blood Cell Count 4.56 M/mm3 (3.80-5.20); White Blood Cell Count 10.04 K/mm3 (4.00-11.30)
[2021-11-12 04:31] LABS: Albumin, Blood 2.5 g/dL (3.4-5.0); Anion Gap 8 mmol/L (6-16); Blood Urea Nitrogen 15 mg/dL (8-24); Bun/Creatinine Ratio 20.3 (12.0-20.0); CO2, Blood 26 mmol/L (21-32); Calcium, Blood 8.6 mg/dL (8.5-10.1); Chloride, Blood 106 mmol/L (98-108); Creatinine, Blood 0.74 mg/dL (0.40-1.00); Glomerular Filtration Rate >60 (60-); Glucose, Blood 168 mg/dL (70-99); Magnesium, Blood 1.8 mg/dL (1.6-2.4); Phosphorus, Blood 2.9 mg/dL (2.5-4.9); Potassium, Blood 3.4 mmol/L (3.5-5.5); Sodium, Blood 140 mmol/L (136-145)
--- NOTE | 2021-11-12 06:08 | NUR ---
INSPECTOR SUMMARY PT IS ALERT TO SELF AND SURROUNDINGS. NO NEW CHANGES THIS SHIFT PT SLEPT COMFORTABLY FOR MOST OF THE SHIFT. PT HAD TWO BM'S THIS SHIFT. VSS AND AFEBRILE. O2 SATS >94% ON RM AIR. WILL REPORT TO ONCOMING RN.
[2021-11-12] MEDS ORDERED: Glucose Gel38 GM PO (15:39)
[2021-11-12] MEDS ORDERED: INSULANPEN SC (15:40)
[2021-11-12] MEDS ORDERED: LIDO700A20 TOP (15:40)
[2021-11-12] MEDS ORDERED: VISBIOME 112.51 EACH PO (15:46)
[2021-11-12] MEDS ORDERED: POTA20PAC PO (15:46)
[2021-11-12] MEDS ORDERED: AMOCLA500 PO (15:46)
[2021-11-12 16:56] LABS: Influenza A, PCR NEGATIVE (NEGATIVE); Influenza B, PCR NEGATIVE (NEGATIVE); Resp Syncytial Virus, PCR NEGATIVE (NEGATIVE); SARS-Cov-2 (COVID-19) PCR, MMC NEGATIVE (NEGATIVE)
--- NOTE | 2021-11-12 18:21 | NUR ---
DISCHARGE: PT RE-EVALUATED BY KAYE VALLES STAFF TODAY, FOUND TO BE AT BASELINE AND ABLE TO RETURN HOME. HORN CATHETER AND IV ACCESS DC'd WNL. PT ASSISTED WITH DRESSING. DC PAPERWORK AND INSTRUCTIONS PROVIDED. [facility]SP[facility] ARRIVES, PT ASSISTED WITH STAND AND PIVOT TO WHEELCHAIR, DEPARTS IN [facility].
== END 2021-11-12 18:00 | disposition home or self-care (01) | DRG 682 ==
LOC: ER 22:36 → ERHOLD 11-02 03:36 → PCU 11-02 03:36
PROVIDERS: Family Medicine; Hospitalist; Internal Medicine; Internal Medicine Nephrology; Student in an Organized Health Care Education/Training Program; ADMIT Family Medicine
DX: N17.9 Acute kidney failure, unspecified (principal); G92.8 Other toxic encephalopathy; E87.2 Acidosis; E87.6 Hypokalemia; Z20.822 Contact with and (suspected) exposure to COVID-19; E66.9 Obesity, unspecified; K11.21 Acute sialoadenitis; Z66 Do not resuscitate; M19.90 Unspecified osteoarthritis, unspecified site; E11.9 Type 2 diabetes mellitus without complications; Z90.49 Acquired absence of other specified parts of digestive tract; Z90.710 Acquired absence of both cervix and uterus; Z98.890 Other specified postprocedural states; Z88.6 Allergy status to analgesic agent; E83.42 Hypomagnesemia
CPT/HCPCS: 0097U; 0241U; 36415; 51702; 51703; 51798; 71045; 74176; 76536; 76770; 80048; 80053; 80069; 81001; 82550; 82784; 82947; 83516; 83520; 83605; 83690; 83735; 84100; 84156; 84165; 84166; 84550; 85014; 85018; 85025; 85027; 86037; 86038; 86334; 86335; 87086; 92526; 92610; 96365; 96366; 96372; 96375; 96376; 97110; 97162; 97166; 97530; 97535; 99285-25; A9270; C1751; J0295; J0696; J1170; J1644; J2310; J2405; J2543; J3010; J3370; J3475; J3480; J7030; J7040; J7050; J7060; J7070; J7120

== ENCOUNTER 2021-11-22 14:20 | Emergency (ER) | payer OTHER ==
[~2021-11-22] VITALS: Ht 165.1 cm; Wt 81.7 kg
[~2021-11-22 14:20] MED LIST changes: +AMOCLA500 PO; +Acetaminophen325 M1 PO; +CHLO25B PO; +GABA300 PO; +Glucose Gel38 GM PO; +INSULANPEN SC; +LIDO700A20 TOP; +POTA20PAC PO; +PRAVASTATIN SOD40 MG PO; +TRAM50 PO; +VISBIOME 112.51 EACH PO
[2021-11-22] MEDS ORDERED: [UNRECOGNIZED DRUG - OTHER] TOP (16:55)
[2021-11-22] MEDS ORDERED: LIDO700A20 TOP (16:55)
== END 2021-11-22 20:35 | disposition home or self-care (01) ==
LOC: ER 14:20
DX: S30.0XXA Contusion of lower back and pelvis, initial encounter (principal); G62.9 Polyneuropathy, unspecified; M19.90 Unspecified osteoarthritis, unspecified site; E11.9 Type 2 diabetes mellitus without complications; I10 Essential (primary) hypertension; Z79.4 Long term (current) use of insulin; Z79.84 Long term (current) use of oral hypoglycemic drugs; Z88.6 Allergy status to analgesic agent; W01.0XXA Fall on same level from slipping, tripping and stumbling without subsequent striking against object, initial encounter
CPT/HCPCS: 72220; 99283-25; A9270